=== PATIENT | female | born 1985 | race Caucasian/White ===

== ENCOUNTER 2022-12-13 13:19 | Emergency (ER) | payer BC, OTHER, SELFPAY ==
[2022-12-13 13:23] VITALS: BP 120/86; PULSE 95; RESP 18; TEMP 37.3; O2SAT 100; BMI 42.0
--- NOTE | 2022-12-13 13:40 | XR_ITS ---
The [address] [address] Patient Name: PILO BARRERA MRN: [id number] date: 1985 Sex: F Assigned Patient Location: ER Current Patient Location: Accession/Order Number: [id number] Exam Date: 12/13/2022 13:45 Report Date: 12/13/2022 14:52 At the request of: FARNAZ SAMUELS Procedure: XR abdomen min 2V EXAM: XR abdomen min 2V HISTORY: constipation, rectal pain COMPARISON: None. TECHNIQUE: Upright and supine views of the abdomen. FINDINGS: Lung bases clear. No free intraperitoneal air. Mild air fluid distention throughout the large bowel and possibly slight small bowel could represent ileus pattern or possibly recent laxative use or gastroenteritis. There is moderate residual retained stool in the right and transverse colon and probably little distally. No definite small bowel obstruction. No portal venous gas or pneumatosis. No definite renal stones. No acute bony process. XR/XR abdomen min 2V IMPRESSION: Mild air fluid distention of predominantly the large bowel and possibly a little bit in the small bowel may represent laxity of use versus ileus or gastroenteritis, correlate clinically. There is some retained stool in the colon. No free air. Electronically authenticated by: ELVA ABREU Date: 12/13/2022 14:52
--- NOTE | 2022-12-13 13:44 | ED_ITS ---
HPI - General Adult General Chief complaint: Nausea/Vomiting/Diarrhea Stated complaint: CONSTIPATION Time Seen by Provider: 12/13/22 13:29 History of Present Illness HPI narrative: Patient with difficulty passing formed stool for the last week. She has been taking Miralax for the last 3 days and has been passing soft stools but not emptying completely. She developed rectal pain yesterday and her helped her use an enema but she did not pass much additional stool. No urinary symptoms. She had been seen and evaluated at [facility] earlier in the week for respiratory symptoms. Related Data Previous Rx's Medication Instructions Recorded peg 3350-electrolytes 236 240 ml PO .Q30min #2,000 mL 12/13/22 gram-22.74 gram-6.74 gram-5.86 gram solution (Golytely) Allergies Allergy/AdvReac Type Severity Reaction Status Date / Time No Known Drug Allergies Allergy Verified 12/13/22 13:27 PFSH PFS Social History Smoking status: Never smoker Exam Narrative Exam Narrative: Nurses notes and vital signs reviewed and patient is not hypoxic. afebrile General: Well-appearing and in no apparent distress. Skin: Warm, dry, no pallor noted. No rash. Eye: Pupils are equal, round and EOMI. No scleral icterus. Cardiovascular: Regular Rate and Rhythm without murmur, gallop or rub. Respiratory: No accessory muscle use or respiratory distress. Lungs are clear to auscultation, no wheezing, rales or rhonchi Back: No CVA tenderness Musculoskeletal: normal ROM GI: Abdomen is soft, non-distended. Normal bowel sounds. No masses appreciated. No tenderness to palpation. No rebound, guarding, or rigidity noted. Rectal exam: proctored by ED nurse Taz Koo. No rectal mass, fissure or abscess noted. She has some small external hemorrhoids all of which are soft and non-inflamed. LINDA unremarkable and no opalpable mass or blood noted. Hemoccult obtained and sent. Neurological: A&O x4. No cranial nerve dysfunction observed. No truncal ataxia. Moves all extremities. Sensation intact. Psychiatric: Cooperative and interactive. Normal mood and affect. Constitutional Vital Signs, click to edit/add: Last Vital Signs Temp 99.2 F 12/13/22 13:23 Pulse 95 H 12/13/22 13:23 Resp 18 12/13/22 13:23 BP 120/86 12/13/22 13:23 Pulse Ox 100 12/13/22 13:23 O2 Del Method Room Air 12/13/22 13:23 Course Vital Signs Vital signs: Vital Signs Temperature 99.2 F 12/13/22 13:23 Pulse Rate 95 H 12/13/22 13:23 Respiratory Rate 18 12/13/22 13:23 Blood Pressure 120/86 12/13/22 13:23 Pulse Oximetry 100 12/13/22 13:23 Oxygen Delivery Method Room Air 12/13/22 13:23 Temperature 99.2 F 12/13/22 13:23 Pulse Rate 95 H 12/13/22 13:23 Respiratory Rate 18 12/13/22 13:23 Blood Pressure 120/86 12/13/22 13:23 Pulse Oximetry 100 12/13/22 13:23 Oxygen Delivery Method Room Air 12/13/22 13:23 Medical Decision Making MDM Narrative Medical decision making narrative: abdominal xrays obtained - no rectal mass or obstruction noted - no impaction found. Patient informed of results and discharged home with prescription for GoLytely. Recommended clear liquid diet only today. She can see her PCP for follow up or return to the ED if she worsens. Discharge Plan Discharge Chief Complaint: Nausea/Vomiting/Diarrhea Clinical Impression: Constipation Patient Disposition: Home, Self-Care Time of Disposition Decision: 14:10 Prescriptions / Home Meds: New peg 3350-electrolytes [Golytely] 236-22.74-6.74 -5.86 gram recon soln 240 ml PO .Q30min Qty: 2000 0RF Rx Instructions: until fecal effluent is clear Instructions: Constipation (ED) Stand Alone Forms: Portal Instructions Referrals: Physician,Non-Staff, MD [Primary Care Provider] - 1 week
[2022-12-13 14:15] LABS: Occult Blood Negative
== END 2022-12-13 14:20 | disposition home or self-care (01) ==
PROVIDERS: Emergency Provider Emergency Medicine
DX: K59.00 Constipation, unspecified (principal)
CPT/HCPCS: 74019; 99283; G0328